=== PATIENT | female | born 1945 | race Caucasian/White ===

== ENCOUNTER 2017-09-30 16:48 | Emergency (ER) | payer MEDICARE, MEDICAID ==
--- NOTE | 2017-09-30 17:21 | RAD ---
THREE VIEWS OF THE RIGHT SHOULDER: 09/30/17 INDICATION: Right arm pain. COMPARISON: None. FINDINGS: There is a focus of calcific tendinosis overlying the posterior aspect of the right greater tuberosit y. There is mild AC joint osteoarthrosis. No acute fracture or subluxation is evident. Visualized rig ht lung is clear. IMPRESSION: Calcific tendinosis posterior right greater tuberosity. POS: TERE
== END 2017-09-30 17:28 | disposition home or self-care (01) ==
LOC: ERS 16:48
DX: M65.811 Other synovitis and tenosynovitis, right shoulder (principal); E11.9 Type 2 diabetes mellitus without complications; E78.5 Hyperlipidemia, unspecified; I12.9 Hypertensive chronic kidney disease with stage 1 through stage 4 chronic kidney disease, or unspecified chronic kidney disease; N18.2 Chronic kidney disease, stage 2 (mild)

== ENCOUNTER 2017-11-05 13:46 | Emergency (ER) | payer MEDICARE, MEDICAID | END 2017-11-05 16:22 | disposition home or self-care (01) | LOC: ERS 13:46 | DX: H92.01 Otalgia, right ear (principal); E11.22 Type 2 diabetes mellitus with diabetic chronic kidney disease; I12.9 Hypertensive chronic kidney disease with stage 1 through stage 4 chronic kidney disease, or unspecified chronic kidney disease; E78.5 Hyperlipidemia, unspecified; F41.9 Anxiety disorder, unspecified; N18.2 Chronic kidney disease, stage 2 (mild); Z79.4 Long term (current) use of insulin; Z79.899 Other long term (current) drug therapy | CPT/HCPCS: 99282 ==

== ENCOUNTER 2019-04-12 10:29 | Emergency (ER) | payer MEDICARE, OTHER ==
[2019-04-12 11:04] LABS: #Eosinphils 0.1 thou/uL (0.0-0.7); #Lymphocytes 1.4 thou/uL (1.20-3.40); #Monocytes 0.5 thou/uL (0.11-0.59); #Neutrophils 4.7 thou/uL (1.40-6.50); %Basophils 0.5 % (0.0-1.0); %Eosinophils 1.9 % (0.0-10.0); %Lymphocytes 20.8 % (21.0-51.0); %Monocytes 7.5 % (0.0-10.0); %Neutrophils 69.4 % (42.0-75.0); Hemoglobin 9.3 g/dL (12.0-16.0); Mean Corpuscular HGB CONC 32.7 g/dL (32.0-36.0); Mean Corpuscular Hemoglobin 28.4 pg (27.0-31.0); Mean Corpuscular Volume 86.8 fL (78.0-98.0); Mean Platelet Volume 8.1 fL (7.4-10.4); Platelet Count 195 thou/uL (130-400); RBC Distribution Width 13.2 % (11.5-14.5); Red Blood Cell (RBC) Count 3.28 mill/uL (4.20-5.40); White Blood Cell (WBC) Count 6.8 thou/uL (4.8-10.8)
--- NOTE | 2019-04-12 11:14 | RAD ---
RADIOGRAPH CHEST 1 VIEW: DATE: 04/12/2019 HISTORY: 73-year-old female with fatigue and near syncope FINDINGS: There is cardiomegaly. The thoracic aorta is tortuous and ectatic. There is no evidence of airspace d ensity, pulmonary edema, or pneumothorax. The lateral costophrenic angles are not effaced. Mild pulmonary venous congestion. Sternotomy wires. IMPRESSION: 1) No acute pulmonary findings. 2) cardiomegaly without overt congestive heart failure. 3) ectasia of thoracic aorta.
[2019-04-12 11:24] LABS: ALT (SGPT) 11 U/L (8-55); AST (SGOT) 15 U/L (5-34); Albumin 4.1 g/dL (3.4-4.8); Alkaline Phosphatase 85 U/L (40-110); Anion Gap 11 mmol/L (10-20); BUN (Urea Nitrogen) 29 mg/dL (9.8-20.1); Bilirubin, Total 0.3 mg/dL (0.2-1.2); Calc. Creatinine Clearance 0 mL/min (70-130); Calcium 9.3 mg/dL (7.8-10.44); Carbon Dioxide 23 mmol/L (23-31); Chloride 106 mmol/L (98-107); Estimated GFR-MDRD 36; Globulin 2.6 g/dL (2.4-3.5); Glucose 222 mg/dL (83-110); Potassium 4.3 mmol/L (3.5-5.1); Protein, Total 6.7 g/dL (6.0-8.3); Sodium 136 mmol/L (136-145)
[2019-04-12 12:35] LABS: Bacteria/HPF None Seen HPF (None Seen); Bilirubin Negative (Negative); Blood, Urine Negative (Negative); Clarity Clear (Clear); Glucose, Urine (Dipstick) 50 mg/dL (Negative); Leukocyte Negative Leu/uL (Negative); Nitrite Negative (Negative); Protein, Urine (Dipstick) 50 mg/dL (Neg-Trace); RBC/HPF 0-3 HPF (0-3); Squamous Epithelial 0-3 HPF (0-3); Urobilinogen Normal mg/dL (Less than 2); WBC/HPF 0-3 HPF (0-3)
== END 2019-04-12 14:34 | disposition home or self-care (01) ==
LOC: ERS 10:29
DX: H81.399 Other peripheral vertigo, unspecified ear (principal); I20.9 Angina pectoris, unspecified; I12.9 Hypertensive chronic kidney disease with stage 1 through stage 4 chronic kidney disease, or unspecified chronic kidney disease; N18.2 Chronic kidney disease, stage 2 (mild); F41.9 Anxiety disorder, unspecified; Z79.891 Long term (current) use of opiate analgesic; Z79.899 Other long term (current) drug therapy
CPT/HCPCS: 36415; 71045; 80053; 81003; 81015; 83880; 84484; 85025; 93005; 96360; 96361

== ENCOUNTER 2019-10-31 17:05 | Emergency (ER) | payer MEDICARE, MEDICAID ==
[2019-10-31 17:38] LABS: #Eosinphils 0.1 thou/uL (0.0-0.7); #Lymphocytes 1.3 thou/uL (1.20-3.40); #Monocytes 0.5 thou/uL (0.11-0.59); #Neutrophils 4.3 thou/uL (1.40-6.50); %Basophils 0.7 % (0.0-1.0); %Eosinophils 1.1 % (0.0-10.0); %Lymphocytes 20.2 % (21.0-51.0); %Monocytes 7.9 % (0.0-10.0); %Neutrophils 70.1 % (42.0-75.0); Hemoglobin 9.5 g/dL (12.0-16.0); Mean Corpuscular Hemoglobin 27.8 pg (27.0-31.0); Mean Corpuscular Volume 84.4 fL (78.0-98.0); Mean Platelet Volume 7.8 fL (7.4-10.4); Platelet Count 184 thou/uL (130-400); RBC Distribution Width 13.8 % (11.5-14.5); Red Blood Cell (RBC) Count 3.41 mill/uL (4.20-5.40); White Blood Cell (WBC) Count 6.2 thou/uL (4.8-10.8)
[2019-10-31 17:59] LABS: ALT (SGPT) Less than 7 U/L (8-55); AST (SGOT) 12 U/L (5-34); Albumin 4.1 g/dL (3.4-4.8); Alkaline Phosphatase 72 U/L (40-110); Anion Gap 11 mmol/L (10-20); BUN (Urea Nitrogen) 30 mg/dL (9.8-20.1); Bilirubin, Total 0.4 mg/dL (0.2-1.2); CK (CPK) 54 U/L (29-168); Calc. Creatinine Clearance 0 mL/min (70-130); Calcium 9.4 mg/dL (7.8-10.44); Carbon Dioxide 24 mmol/L (23-31); Chloride 103 mmol/L (98-107); Estimated GFR-MDRD 28; Globulin 3.1 g/dL (2.4-3.5); Glucose 155 mg/dL (83-110); Lipase 37 U/L (8-78); Protein, Total 7.2 g/dL (6.0-8.3); Sodium 134 mmol/L (136-145)
[2019-10-31] MEDS ORDERED: Morphine 4 MG/ML VIAL ONE (20:16)
[2019-10-31] MEDS ORDERED: Ondansetron PF 4 MG/2 ML Vial ONE (20:16)
--- NOTE | 2019-10-31 22:17 | CT ---
CT OF THE ABDOMEN AND PELVIS WITHOUT CONTRAST: 11/10/09 COMPARISON: 06/04/16. HISTORY: Diarrhea and left lower quadrant abdominal pain. TECHNIQUE: Multiple contiguous axial images were obtained in a CT of the abdomen and pelvis without contrast. Sa gittal and coronal reformats were performed. FINDINGS: The patient is status post cholecystectomy and hysterectomy. The kidneys are slightly lobulated in ap pearance. There is a nonobstructive calcification in the right kidney measuring 1 to 2 mm in size. No focal liver lesions are seen. The adrenal glands, spleen, and pancreas are unremarkable, although ev aluation is limited without IV contrast. No free air, free fluid, or stranding changes are seen in the abdomen or pelvis. The large and small bowel are unremarkable. The appendix is normal. No abdominal or pelvic lymphadenopathy are seen. Degenerative changes are seen in the spine. The visualized inferior thorax and abdominal wall soft ti ssues are unremarkable. IMPRESSION: 1. No evidence of acute intra-abdominal/pelvic abnormality. 2. Nonobstructing right renal calcification. POS: EAA
== END 2019-10-31 21:23 | disposition home or self-care (01) ==
LOC: ERS 17:05
DX: R10.32 Left lower quadrant pain (principal); I20.9 Angina pectoris, unspecified; F41.9 Anxiety disorder, unspecified; I12.9 Hypertensive chronic kidney disease with stage 1 through stage 4 chronic kidney disease, or unspecified chronic kidney disease; N18.2 Chronic kidney disease, stage 2 (mild); Z79.891 Long term (current) use of opiate analgesic; Z79.899 Other long term (current) drug therapy
CPT/HCPCS: 36415; 74176; 80053; 82550; 83605; 83690; 85025; 96361; 96374; 96375; J2270; J2405

== ENCOUNTER 2020-01-10 13:16 | Emergency (ER) | payer MEDICARE, MEDICAID ==
--- NOTE | 2020-01-10 13:56 | RAD ---
RADIOGRAPH CHEST 1 VIEW: DATE: 01/10/2020 HISTORY: 74-year-old female with history of congestive heart failure presents with lower extremity edema. FINDINGS: There is cardiomegaly. The thoracic aorta is tortuous and ectatic. There is no evidence of airspace d ensity, pulmonary edema, or pneumothorax. The lateral costophrenic angles are not effaced. Sternotomy wires. IMPRESSION: 1) No acute pulmonary findings. 2) cardiomegaly without pulmonary edema. 3) ectasia of thoracic aorta. 4) status post open heart surgery.
[2020-01-10 14:14] LABS: #Eosinphils 0.1 thou/uL (0.0-0.7); #Lymphocytes 1.8 thou/uL (1.20-3.40); #Monocytes 0.6 thou/uL (0.11-0.59); #Neutrophils 4.6 thou/uL (1.40-6.50); %Basophils 0.5 % (0.0-1.0); %Eosinophils 1.7 % (0.0-10.0); %Lymphocytes 25.1 % (21.0-51.0); %Monocytes 8.3 % (0.0-10.0); %Neutrophils 64.3 % (42.0-75.0); Hemoglobin 9.3 g/dL (12.0-16.0); Mean Corpuscular HGB CONC 32.2 g/dL (32.0-36.0); Mean Corpuscular Hemoglobin 27.5 pg (27.0-31.0); Mean Corpuscular Volume 85.4 fL (78.0-98.0); Mean Platelet Volume 8.2 fL (7.4-10.4); Platelet Count 202 thou/uL (130-400); RBC Distribution Width 14.7 % (11.5-14.5); Red Blood Cell (RBC) Count 3.39 mill/uL (4.20-5.40); White Blood Cell (WBC) Count 7.1 thou/uL (4.8-10.8)
[2020-01-10 14:37] LABS: ALT (SGPT) 9 U/L (8-55); AST (SGOT) 16 U/L (5-34); Albumin 4.2 g/dL (3.4-4.8); Alkaline Phosphatase 72 U/L (40-110); Anion Gap 14 mmol/L (10-20); BUN (Urea Nitrogen) 30 mg/dL (9.8-20.1); Bilirubin, Total 0.3 mg/dL (0.2-1.2); Calc. Creatinine Clearance 0 mL/min (70-130); Calcium 9.4 mg/dL (7.8-10.44); Carbon Dioxide 21 mmol/L (23-31); Chloride 107 mmol/L (98-107); Estimated GFR-MDRD 40; Globulin 2.9 g/dL (2.4-3.5); Glucose 112 mg/dL (83-110); Potassium 4.3 mmol/L (3.5-5.1); Protein, Total 7.1 g/dL (6.0-8.3); Sodium 138 mmol/L (136-145)
[2020-01-10] MEDS ORDERED: Furosemide 40 MG TAB ONE (16:07)
--- NOTE | 2020-01-18 15:34 | EKG ---
Test Reason : Blood Pressure : / mmHG Vent. Rate : 064 BPM Atrial Rate : 064 BPM P-R Int : 184 ms QRS Dur : 084 ms QT Int : 410 ms P-R-T Axes : 018 -20 110 degrees QTc Int : 422 ms Normal sinus rhythm Voltage criteria for left ventricular hypertrophy Nonspecific ST and T wave abnormality Abnormal ECG Similar to 04/12/2019 Confirmed by CHETNA DENSON DO ([id number]), editor house organ SHERYL ZAVALA ([id number]) on 01/18/2020 3:34:06 PM Referred By: Confirmed By:CHETNA DENSON DO
== END 2020-01-10 16:12 | disposition home or self-care (01) ==
LOC: ERS 13:16
DX: R60.0 Localized edema (principal); I20.9 Angina pectoris, unspecified; I12.9 Hypertensive chronic kidney disease with stage 1 through stage 4 chronic kidney disease, or unspecified chronic kidney disease; N18.2 Chronic kidney disease, stage 2 (mild); F41.9 Anxiety disorder, unspecified; Z79.899 Other long term (current) drug therapy
CPT/HCPCS: 36415; 71045; 80053; 83880; 84484; 85025; 93005

== ENCOUNTER 2020-01-23 06:19 | Inpatient (IN) | payer MEDICARE, MEDICAID, OTHER ==
[2020-01-23] MEDS ORDERED: Fentanyl 100 MCG/2 ML VIAL ONE (06:39)
[2020-01-23] MEDS ORDERED: Ondansetron PF 4 MG/2 ML Vial ONE ×2 (06:39→08:27)
[2020-01-23 06:45] LABS: #Basophils 0.1 thou/uL (0.0-0.2); #Eosinphils 0.2 thou/uL (0.0-0.7); #Lymphocytes 2.4 thou/uL (1.20-3.40); #Monocytes 0.8 thou/uL (0.11-0.59); #Neutrophils 7.7 thou/uL (1.40-6.50); %Basophils 0.7 % (0.0-1.0); %Eosinophils 1.4 % (0.0-10.0); %Lymphocytes 21.6 % (21.0-51.0); %Monocytes 7.4 % (0.0-10.0); %Neutrophils 68.9 % (42.0-75.0); Hemoglobin 11.7 g/dL (12.0-16.0); Mean Corpuscular HGB CONC 32.6 g/dL (32.0-36.0); Mean Platelet Volume 7.4 fL (7.4-10.4); Platelet Count 268 thou/uL (130-400); RBC Distribution Width 14.8 % (11.5-14.5); Red Blood Cell (RBC) Count 4.18 mill/uL (4.20-5.40); White Blood Cell (WBC) Count 11.2 thou/uL (4.8-10.8)
[2020-01-23 07:09] LABS: ALT (SGPT) 8 U/L (8-55); AST (SGOT) 11 U/L (5-34); Albumin 4.2 g/dL (3.4-4.8); Alkaline Phosphatase 74 U/L (40-110); Anion Gap 12 mmol/L (10-20); BUN (Urea Nitrogen) 27 mg/dL (9.8-20.1); Bilirubin, Total 0.5 mg/dL (0.2-1.2); Calc. Creatinine Clearance 0 mL/min (70-130); Calcium 9.6 mg/dL (7.8-10.44); Carbon Dioxide 31 mmol/L (23-31); Chloride 96 mmol/L (98-107); Estimated GFR-MDRD 46; Glucose 151 mg/dL (83-110); Lipase 602 U/L (8-78); Potassium 3.7 mmol/L (3.5-5.1); Protein, Total 7.2 g/dL (6.0-8.3); Sodium 135 mmol/L (136-145)
[2020-01-23 07:45] LABS: Bilirubin Negative (Negative); Blood, Urine Negative (Negative); Clarity Clear (Clear); Glucose, Urine (Dipstick) Normal (Negative); Ketone, Urine Negative (Negative); Leukocyte Negative Leu/uL (Negative); Nitrite Negative (Negative); Protein, Urine (Dipstick) 100 mg/dL (Neg-Trace); Urobilinogen Normal mg/dL (Less than 2); pH, Urine 7.5 (5.0-9.0)
[2020-01-23 07:46] LABS: Bacteria/HPF None Seen HPF (None Seen); RBC/HPF 0-3 HPF (0-3); Squamous Epithelial None Seen HPF (0-3); WBC/HPF 0-3 HPF (0-3)
--- NOTE | 2020-01-23 07:51 | CT ---
CT ABDOMEN WITH CONTRAST CT PELVIS WITH CONTRAST: DATE: 01/23/2020 HISTORY: 74-year-old female with epigastric abdominal pain radiating to back, with nausea TECHNIQUE: IV injection of iodinated contrast media: Administered Oral contrast media:Not administered FINDINGS: Liver: No focal solid mass. Spleen: No splenomegaly.. Pancreas: No mass or surrounding fat stranding.. Adrenals: No mass.. Kidneys: No hydronephrosis or enhancement abnormalities.. Punctate 2 mm calculus at right upper pole. At least 2 small, approximately 1 cm hypodensities in the right renal lower pole parenchyma, too small to characterize. No pyelonephritis. Ureters: No dilation. Bladder: No pathology identified. Abdominal aorta: No aneurysm. Small bowel: No dilation. Colon: No adjacent fat stranding. Appendix: No dilation or adjacent fat stranding.. Free air: None. Free fluid: None. IMPRESSION: 1. No acute pathology identified.. 2. Minimal nephrolithiasis: Single punctate right renal calculus. 3. Nonspecific small lesions in lower pole of right kidney, too small to characterize.
[2020-01-23] MEDS ORDERED: Morphine 4 MG/ML VIAL ONE (08:27)
--- NOTE | 2020-01-23 08:48 | PDOC.FPRHP ---
- History of Present Illness Chief Complaint: Abdominal pain History of Present Illness: Patient is a 74F presenting to ED for abdominal pain. PMHx is significant for CAD s/p CABG, HTN, HLD. Patient reports that she started having abdominal pain last night. SHe describes the pain as stabbing epigastric pain that radiated around her sides to her back. She endorses minimal nausea with no vomiting. She has not had solid PO intake. She reports that she is able to drink water but not able to eat food. She had cholecystectomy ~30 yrs ago. She has never had pancreatitis before. ED Course: Received 1L NS, 4 mg Morphine, 100 mcg fentanyl, 4 mg Zofran X2. - Allergies/Adverse Reactions Allergies Allergy/AdvReac Type Severity Reaction Status Date / Time codeine [Codeine] Allergy Unknown Emesis Verified 02/12/16 14:50 - Home Medications Medication Instructions Recorded Confirmed Type Sertraline HCl [Zoloft] 50 mg PO HS 10/30/15 01/23/20 History Carvedilol [Coreg] 6.25 mg PO BID-WM #0 tab 11/01/15 01/23/20 Rx Ferrous Sulfate [Feosol] 325 mg PO BID 01/23/20 01/23/20 History Furosemide 20 mg PO DAILY 01/23/20 01/23/20 History Isosorbide Mononitrate [Imdur ER] 30 mg PO DAILY 01/23/20 01/23/20 History NIFEdipine [Procardia XL] 30 mg PO BID 01/23/20 01/23/20 History Omeprazole 20 mg PO DAILY 01/23/20 01/23/20 History hydrALAZINE [Apresoline] 50 mg PO BID 01/23/20 01/23/20 History - History PMHx: CAD s/p CABG, HTN, HLD, DM PSHx: Cholecystectomy, CABG, Hysterectomy FHx: Dad with HTN Social: Denies X3 - Review of Systems General: denies: fever/chills, weight/appetite/sleep changes Eyes: denies: eye pain, vision changes ENT: denies: nasal congestion, rhinorrhea Respiratory: denies: cough, shortness of breath Cardiovascular: denies: chest pain, edema Gastrointestinal: reports: nausea, abdominal pain. denies: vomiting, diarrhea, constipation Genitourinary: denies: incontinence, dysuria Skin: denies: rashes, lesions Musculoskeletal: denies: pain, tenderness Neurological: denies: numbness, weakness - Vital signs BP: 199/76, Pulse: 59, Resp: 18, Temp: 98.4 (Oral), Pain: 10, O2 sat: 100 on ( Room Air), Time: 01/23/2020 06:20. 68 kg - Physical Exam Constitutional: NAD, awake, alert and oriented, well developed HEENT: normocephalic and atraumatic, EOMI, conjunctiva clear Neck: supple, FROM Heart: RRR, normal S1/S2, no murmurs/rubs/gallops, pulses present Lungs: CTAB, no respiratory distress, good air movement, no rales/rhonchi Abdomen: soft, bowel sounds present, no masses/distention, no hernias -Abdomen: Significant abdominal pain with tenderness to palpation in epigastric area Musculoskeletal: normal structure, normal tone Neurological: no focal deficit, CN II-XII intact Skin: no rash/lesions, capillary refill <2 seconds Heme/Lymphatic: no unusual bruising or bleeding, no purpura Psychiatric: normal mood and affect, good judgment and insight FMR H&P: Results - Labs Result Diagrams: 01/23/20 06:33 01/23/20 06:33 Lab results: WBC 11.2 thou/uL (4.8-10.8) H 01/23/20 06:33 Hgb 11.7 g/dL (12.0-16.0) L 01/23/20 06:33 Hct 36.0 % (36.0-47.0) 01/23/20 06:33 MCV 86.0 fL (78.0-98.0) 01/23/20 06:33 Plt Count 268 thou/uL (130-400) 01/23/20 06:33 Neutrophils % 68.9 % (42.0-75.0) 01/23/20 06:33 Sodium 135 mmol/L (136-145) L 01/23/20 06:33 Potassium 3.7 mmol/L (3.5-5.1) 01/23/20 06:33 Chloride 96 mmol/L (98-107) L 01/23/20 06:33 Carbon Dioxide 31 mmol/L (23-31) 01/23/20 06:33 BUN 27 mg/dL (9.8-20.1) H 01/23/20 06:33 Creatinine 1.15 mg/dL (0.6-1.1) H 01/23/20 06:33 Glucose 151 mg/dL (83-110) H 01/23/20 06:33 Calcium 9.6 mg/dL (7.8-10.44) 01/23/20 06:33 Total Bilirubin 0.5 mg/dL (0.2-1.2) 01/23/20 06:33 AST 11 U/L (5-34) 01/23/20 06:33 ALT 8 U/L (8-55) 01/23/20 06:33 Alkaline Phosphatase 74 U/L (40-110) 01/23/20 06:33 Serum Total Protein 7.2 g/dL (6.0-8.3) 01/23/20 06:33 Albumin 4.2 g/dL (3.4-4.8) 01/23/20 06:33 Lipase 602 U/L (8-78) H 01/23/20 06:33 Urine Ketones Negative mg/dL (Negative) 01/23/20 07:30 Urine Blood Negative (Negative) 01/23/20 07:30 Urine Nitrite Negative (Negative) 01/23/20 07:30 Ur Leukocyte Esterase Negative Lorie/uL (Negative) 01/23/20 07:30 Urine RBC 0-3 HPF (0-3) 01/23/20 07:30 Urine WBC 0-3 HPF (0-3) 01/23/20 07:30 Ur Squamous Epith Cells None Seen HPF (0-3) 01/23/20 07:30 Urine Bacteria None Seen HPF (None Seen) 01/23/20 07:30 - EKG Interpretation EKG: Normal sinus rhythm, no acute signs of infarct - Radiology Interpretation CT scan - abdomen Status: report reviewed by me Additional comment: Renal calculi, no concern for pancreatitis FMR H&P: A/P - Plan Acute pancreatitis - No history of pancreatitis, denies etoh use - Lipase 602, CT no evidence of pancreatitis-US ordered, radiologist reported that CT abdomen had sufficient view of Common bile duct and US would not add any more significant information - Admit to medical floor, inpatient - NPO, IVF - Pain control - lipid panel HTN - SBP 170-200 in ED - Hold Home medications- nifedipine - continue to monitor - hold home lasix - PRN hydralazine, labetalol CAD s/p CABG - hold home med IMDUR, Coreg, hydralazine - PRN SL nitro GERD - IV Protonix - Hold home PPI Anxiety/depression - Hold home sertraline 50 mg DVT: lovenox GI: protonix Code: full PCP: BRITTANY Dispo: Admit to medicine, Expected LOS >48 hrs FMR H&P: Upper Level - Plan Date/Time: 01/23/20 0848 Winsome Ramirez DO, have evaluated this patient and agree with findings/plan as outlined by internet webmaster resident. Pertinent changes/additions are listed here. Pt is a 69 yo M/F with PMH of CAD s/p CABG, HTN, HLD, and T2DM presents to the ED for epigastric pain onset yesterday associated with N/V. She denies fever. She reports a new medication recently. Has hx of cholecystectomy and denies epigastric colic. Denies alcohol use. VS: BP 199/70, O2 97%, P50, T98.1 PE: Gen: NAD HEENT: Moist MM, no LAD Heart: RRR, no murmurs or extra sounds. Lungs: CTAB, no wheezing. No increased work of breathing Abd: soft,ttp of epigastric area, no rebound or guarding, no masses or hernias Ext: no cyanosis or edema Skin: no rashes Psych: AOx3 Pertinent Labs/Imaging: CTabd: neg, normal CBD caliber Lipase: 600 BUN 27, Cr 1.15 WBC 11.2 A/P: Acute Pancreatitis: -unsure etiology, reviewing medications which is most likely with time line. S/ p cholecystectomy with CTabd showing normal caliber CBD. FLP pending. Pt denies etoh abuse -s/p 1L IVF in ED, will continue maintenance, repeat BMP this afternoon, NPO status -CTabd neg, but epigastric pain and Lipase 600 -BISAP: 2 CKD3: -renally dose meds -BUN elevated, repeat later this afternoon T2DM: -SSI, ACHS accuchecks CAD s/p CABG: -daily ASA once tolerating PO HTN: -elevated now, didn't take home meds -will give prns until tolerating PO Dispo: Stable, inaptient medical DVT PPx: Lovenox GI PPx: none Code Status: Full PCP: BRITTANY Addendum - Attending - Attending Attestation Date/Time: 01/23/20925 I personally evaluated the patient and discussed the management with Dr. Ying/ Donna. I agree with the History, Examination, Assessment and Plan documented above with any addition or exceptions noted below. Patient here with acute onset midepigastric pain associated with bloating, nausea, inability to tolerate PO. Reports history of similar pain. She is s/p cholecystectomy per patient. She has normal vital signs at this time. Labs show elevated baseline creatinine, BUN, and highly elevated lipase. Her CT scan is nonremarkable for abdominal pathology acute. Clinically, she has pancreatitis and will be treated as such with IVF, pain control, and attempts to identify the cause.
[2020-01-23] MEDS ORDERED: Acetaminophen 650 MG Suppository PR PRN (10:05)
[2020-01-23] MEDS ORDERED: Ondansetron ODT 4 MG TAB PO PRN (10:05)
[2020-01-23] MEDS ORDERED: Calcium Carbonate 500 MG ChewTAB PO PRN (10:05)
[2020-01-23] MEDS ORDERED: Acetaminophen 325 MG TAB PO PRN (10:05)
[2020-01-23] MEDS ORDERED: Ondansetron PF 4 MG/2 ML Vial IVP PRN (10:05)
[2020-01-23] MEDS: Lactated Ringer's 1,000 ML IV SCH ×2 (10:15→17:04)
[2020-01-23] MEDS ORDERED: Morphine 2 MG/ML VIAL SLOW IVP PRN (10:15)
[2020-01-23 10:32] VITALS: BMI 26.8
[2020-01-23] MEDS ORDERED: hydrALAZINE 20 MG/ML VIAL SLOW IVP SCH (12:00)
[2020-01-23] MEDS ORDERED: Nitroglycerin 0.4 MG TAB (25 Tab Bottle) SL PRN (12:04)
[2020-01-23] MEDS ORDERED: Labetalol HCl 100 MG/20 ML VIAL SLOW IVP PRN (12:04)
[2020-01-23] MEDS: hydrALAZINE 20 MG/ML VIAL SLOW IVP PRN ×3 (12:33→20:15)
[2020-01-23] MEDS ORDERED: Pantoprazole 40 MG VIAL IVP SCH (12:45)
[2020-01-23] MEDS ORDERED: Iopamidol 370 76% 100 ML VIAL ONE (13:19)
[2020-01-23 13:59] LABS: Anion Gap 12 mmol/L (10-20); BUN (Urea Nitrogen) 22 mg/dL (9.8-20.1); Calc. Creatinine Clearance 52 mL/min (70-130); Calcium 9.2 mg/dL (7.8-10.44); Carbon Dioxide 30 mmol/L (23-31); Chloride 99 mmol/L (98-107); Estimated GFR-MDRD 56; Glucose 129 mg/dL (83-110); Potassium 3.9 mmol/L (3.5-5.1); Sodium 137 mmol/L (136-145)
[2020-01-23 14:20] LABS: Cardiac Risk 2.5 (Less than 4.5)
--- NOTE | 2020-01-23 16:15 | PDOC.BPN ---
- Brief Progress Note Ms. Kinsey is a 74 yo patient of mine admitted earlier this morning for acute pancreatitis. I stopped by to visit with her as a courtesy visit. Pt reports that the pain occurred suddenly last night and progressively worsened bringing her to the ED. She denies any history of pancreatitis and denies alcohol use. She reports that she is feeling much better this afternoon and is resting comfortably in bed.
[2020-01-23] MEDS ORDERED: Carvedilol 6.25 MG TAB PO SCH (17:00)
[2020-01-23 17:09] LABS: SARS-CoV-2 MS2 Positive; SARS-CoV-2 N Gene Negative; SARS-CoV-2 S Gene Negative; SARS-CoV-2 by NAA Not Detected (NotDetected); SARS-CoV-2 orf1ab Negative
[2020-01-23] MEDS ORDERED: NIFEdipine XL 30 MG TAB PO SCH (21:00)
[2020-01-23] MEDS ORDERED: hydrALAZINE 25 MG TAB PO SCH (21:00)
[2020-01-23] MEDS ORDERED: Ferrous Sulfate 325 MG TAB PO SCH (21:00)
[2020-01-24] MEDS: hydrALAZINE 20 MG/ML VIAL SLOW IVP PRN ×4 (00:49→16:11)
[2020-01-24] MEDS: Lactated Ringer's 1,000 ML IV SCH ×3 (00:52→18:00)
[2020-01-24 05:37] LABS: #Eosinphils 0.2 thou/uL (0.0-0.7); #Lymphocytes 1.7 thou/uL (1.20-3.40); #Monocytes 0.7 thou/uL (0.11-0.59); #Neutrophils 8.5 thou/uL (1.40-6.50); %Basophils 0.3 % (0.0-1.0); %Eosinophils 1.5 % (0.0-10.0); %Lymphocytes 15.5 % (21.0-51.0); %Monocytes 6.2 % (0.0-10.0); %Neutrophils 76.5 % (42.0-75.0); Hemoglobin 10.4 g/dL (12.0-16.0); Mean Corpuscular HGB CONC 31.9 g/dL (32.0-36.0); Mean Corpuscular Hemoglobin 27.9 pg (27.0-31.0); Mean Corpuscular Volume 87.4 fL (78.0-98.0); Mean Platelet Volume 7.7 fL (7.4-10.4); Platelet Count 224 thou/uL (130-400); RBC Distribution Width 15.1 % (11.5-14.5); Red Blood Cell (RBC) Count 3.71 mill/uL (4.20-5.40); White Blood Cell (WBC) Count 11.1 thou/uL (4.8-10.8)
[2020-01-24 06:00] LABS: Anion Gap 11 mmol/L (10-20); BUN (Urea Nitrogen) 23 mg/dL (9.8-20.1); Calc. Creatinine Clearance 48 mL/min (70-130); Calcium 8.8 mg/dL (7.8-10.44); Carbon Dioxide 30 mmol/L (23-31); Chloride 98 mmol/L (98-107); Estimated GFR-MDRD 52; Glucose 132 mg/dL (83-110); Potassium 3.9 mmol/L (3.5-5.1); Sodium 135 mmol/L (136-145)
--- NOTE | 2020-01-24 06:47 | PDOC.FM ---
- Subjective Subjective: Patient reports that she is feeling better this morning with only abdominal soreness when she presses on it. She does not feel hungry but would like to try taking oral nutrition. - Objective MAR Reviewed: Yes Vital Signs & Weight: Vital Signs (12 hours) Temp Pulse Resp BP BP Pulse Ox 01/24/20 06:28 179/64 H 01/24/20 05:12 64 183/64 H 01/24/20 04:22 98.5 F 60 16 175/68 H 98 01/24/20 01:57 59 L 160/64 H 01/24/20 00:49 59 L 166/65 H 01/24/20 00:04 98.5 F 62 16 174/60 H 97 01/23/20 21:25 147/62 H 01/23/20 21:21 147/62 H 01/23/20 20:15 63 01/23/20 20:00 98 01/23/20 19:41 185/66 H 01/23/20 19:17 98.8 F 63 16 189/73 H 98 Weight Weight 66.587 kg I&O: 01/22/20 01/23/20 01/24/20 06:59 06:59 06:59 Intake Total 2500 Balance 2500 Result Diagrams: 01/24/20 05:11 01/24/20 05:11 Phys Exam - Physical Examination Constitutional: NAD HEENT: moist MMs, sclera anicteric Respiratory: no wheezing, no rales, no rhonchi, clear to auscultation bilateral Cardiovascular: RRR, no significant murmur, no rub Gastrointestinal: soft, non-tender, no distention, positive bowel sounds Musculoskeletal: no edema, pulses present Dx/Plan - Plan Plan: Acute pancreatitis - No history of pancreatitis, denies etoh use - Lipase 602, CT no evidence of pancreatitis-US ordered, radiologist reported that CT abdomen had sufficient view of Common bile duct and US would not add any more significant information - Admit to medical floor, inpatient - Increase diet to CLD, IVF - Pain control HTN - SBP 170-200 in ED - Hold Home medications- nifedipine - continue to monitor - hold home lasix - PRN hydralazine, labetalol CAD s/p CABG - hold home med IMDUR, Coreg, hydralazine - PRN SL nitro GERD - IV Protonix - Hold home PPI Anxiety/depression - Hold home sertraline 50 mg Anemia - Iron studies DVT: lovenox GI: protonix Code: full PCP: BRITTANY Dispo: Admit to medicine, Expected LOS >48 hrs Addendum - Attending - Attending Attestation Date/Time: 01/24/20 1114 I personally evaluated the patient and discussed the management with Dr. Ying. I agree with the History, Examination, Assessment and Plan documented above with any addition or exceptions noted below. Patient with improved pain. No narcotics overnight. Will advance to CLD. Continue IVF.
[2020-01-24] MEDS: Enoxaparin Sodium 40 MG/0.4 ML SYRINGE SC SCH (08:31)
[2020-01-24] MEDS ORDERED: Pantoprazole 40 MG VIAL IVP SCH (09:00)
[2020-01-24] MEDS ORDERED: Carvedilol 6.25 MG TAB PO SCH (12:00)
[2020-01-24] MEDS ORDERED: hydrALAZINE 25 MG TAB PO SCH (12:00)
[2020-01-24] MEDS ORDERED: NIFEdipine XL 30 MG TAB PO SCH (12:00)
[2020-01-24] MEDS: Ferrous Sulfate 325 MG TAB PO SCH (16:10)
[2020-01-24] MEDS: Carvedilol 6.25 MG TAB PO SCH (16:10)
[2020-01-24] MEDS: hydrALAZINE 25 MG TAB PO SCH (19:51)
[2020-01-24] MEDS: NIFEdipine XL 30 MG TAB PO SCH (19:51)
[2020-01-25] MEDS: Lactated Ringer's 1,000 ML IV SCH ×2 (02:10→10:35)
[2020-01-25 05:49] LABS: #Eosinphils 0.2 thou/uL (0.0-0.7); #Lymphocytes 1.4 thou/uL (1.20-3.40); #Monocytes 0.6 thou/uL (0.11-0.59); %Basophils 0.4 % (0.0-1.0); %Eosinophils 2.1 % (0.0-10.0); %Lymphocytes 17.4 % (21.0-51.0); %Monocytes 6.9 % (0.0-10.0); %Neutrophils 73.3 % (42.0-75.0); Mean Corpuscular HGB CONC 31.5 g/dL (32.0-36.0); Mean Corpuscular Hemoglobin 27.5 pg (27.0-31.0); Mean Corpuscular Volume 87.5 fL (78.0-98.0); Mean Platelet Volume 7.5 fL (7.4-10.4); Platelet Count 208 thou/uL (130-400); RBC Distribution Width 14.7 % (11.5-14.5); Red Blood Cell (RBC) Count 3.62 mill/uL (4.20-5.40); White Blood Cell (WBC) Count 8.2 thou/uL (4.8-10.8)
--- NOTE | 2020-01-25 05:57 | PDOC.FM ---
- Subjective Subjective: Patient doing well this am no acute concerns, reports that diet was tolerated well yesterday. Denies abdominal pain. - Objective MAR Reviewed: Yes Vital Signs & Weight: Vital Signs (12 hours) Temp Pulse Resp BP Pulse Ox 01/25/20 04:00 98.2 F 51 L 16 157/58 H 96 01/25/20 00:05 98.5 F 52 L 18 145/65 H 98 01/24/20 21:47 97 01/24/20 19:17 98.5 F 54 L 16 173/64 H 97 01/24/20 18:01 169/67 H Weight Weight 66.587 kg I&O: 01/23/20 01/24/20 01/25/20 06:59 06:59 06:59 Intake Total 2500 2100 Balance 2500 2100 Result Diagrams: 01/25/20 05:25 01/25/20 05:25 Phys Exam - Physical Examination Constitutional: NAD HEENT: moist MMs, sclera anicteric Respiratory: no wheezing, no rales, no rhonchi, clear to auscultation bilateral Cardiovascular: RRR, no significant murmur, no rub Gastrointestinal: soft, no distention, positive bowel sounds mild tenderness to palpation in epigastric region Musculoskeletal: no edema, pulses present Dx/Plan - Plan Plan: Acute pancreatitis - No history of pancreatitis, denies etoh use - Lipase 602, CT no evidence of pancreatitis-US ordered, radiologist reported that CT abdomen had sufficient view of Common bile duct and US would not add any more significant information - Admit to medical floor, inpatient - Increase diet to Full liquid - Pain control, has not used IV morphine for >36 hours HTN - SBP 170-200 in ED - Home medications- nifedipine - continue to monitor - consider restarting home lasix - PRN hydralazine, labetalol CAD s/p CABG - Home med IMDUR, Coreg, hydralazine - PRN SL nitro GERD - PO protonix Anxiety/depression - Home sertraline 50 mg Anemia - On home iron, previously worked up in clinic, likely Anemia of Chronic disease DVT: lovenox GI: protonix Code: full PCP: BRITTANY Dispo: Admitted to medical, Expected LOS <48 hrs Addendum - Attending - Attending Attestation Date/Time: 01/25/20 4316 I personally evaluated the patient and discussed the management with Dr. Ying. I agree with the History, Examination, Assessment and Plan documented above with any addition or exceptions noted below. Patient feeling improved and tolerated CLD yesterday well. Will escalate to full liquids this morning and ADAT. Possible dc later if she does well. No narcotics for pain control in >24 hours.
[2020-01-25 06:12] LABS: Anion Gap 12 mmol/L (10-20); BUN (Urea Nitrogen) 17 mg/dL (9.8-20.1); Calc. Creatinine Clearance 52 mL/min (70-130); Calcium 8.8 mg/dL (7.8-10.44); Carbon Dioxide 26 mmol/L (23-31); Chloride 104 mmol/L (98-107); Estimated GFR-MDRD 57; Glucose 132 mg/dL (83-110); Sodium 138 mmol/L (136-145)
[2020-01-25 07:05] VITALS: TEMP 98.3
[2020-01-25] MEDS: NIFEdipine XL 30 MG TAB PO SCH (08:15)
[2020-01-25] MEDS: Carvedilol 6.25 MG TAB PO SCH (08:15)
[2020-01-25] MEDS: Ferrous Sulfate 325 MG TAB PO SCH (08:15)
[2020-01-25] MEDS: hydrALAZINE 25 MG TAB PO SCH (08:16)
[2020-01-25] MEDS: Enoxaparin Sodium 40 MG/0.4 ML SYRINGE SC SCH (08:17)
[2020-01-25] MEDS ORDERED: NIFEdipine XL 60 MG TAB PO SCH (10:15)
[2020-01-25 17:15] VITALS: BP 143/66
[2020-01-26] MEDS ORDERED: NIFEdipine XL 90 MG TAB PO SCH (09:00)
--- NOTE | 2020-01-26 12:44 | DIS ---
DATE OF ADMISSION: 01/23/2020 DATE OF DISCHARGE: 01/25/2020 RESIDENT: Santosh Ying MD. ADMITTING ATTENDING: Golden Aparicio MD. DISCHARGE ATTENDING: Golden Aparicio MD. CONSULTS: None. PROCEDURES: CT of the abdomen and pelvis showing no acute signs of pancreatitis. PRIMARY DIAGNOSIS: Acute pancreatitis. SECONDARY DIAGNOSES: Hypertension; hyperlipidemia; coronary artery disease, status post coronary artery bypass graft; gastroesophageal reflux disease; anxiety/depression. DISCHARGE MEDICATIONS: 1. Carvedilol 6.25 mg p.o. b.i.d. 2. Ferrous sulfate 325 mg p.o. b.i.d. 3. Hydralazine 50 mg p.o. b.i.d. 4. Imdur 30 mg p.o. daily. 5. Nifedipine 90 mg p.o. daily. 6. Omeprazole 20 mg p.o. daily. 7. Zofran 4 mg p.o. q.6 hours p.r.n., 10 tabs. 8. Sertraline 50 mg p.o. at bedtime. DISCONTINUED MEDICATIONS: Nifedipine 30 mg b.i.d. HISTORY OF PRESENT ILLNESS/HOSPITAL COURSE: The patient is a 74-year-old female , who presented to the ER for abdominal pain. The patient reported that she started having abdominal pain the night prior to admission, described the pain as stabbing epigastric pain that radiated around her sides to her back. She endorsed minimal nausea with no vomiting. She had not had solid p.o. intake, but had been able to drink water. She had a cholecystectomy about 30 years ago. She has never had pancreatitis before. She denied alcohol use. Lipase was significant for level of 602 upon admission. Physical exam showed epigastric tenderness to palpation. The patient was admitted for pancreatitis. The patient was started on maintenance IV fluids and placed n.p.o. The next day, the patient was feeling better and started on a clear liquid diet. The patient was transitioned to full liquid diet and then bariatric soft diet. The patient reported no increased abdominal pain and no nausea and vomiting. The patient's blood pressure was elevated throughout her hospital stay. Systolic blood pressures were in the 200s upon admission and were poorly controlled during the hospital stay, however, did get down to the 150 systolic by the time of discharge. Changed patient's nifedipine from 30 mg b.i.d. to 90 mg daily. DISPOSITION: Stable. DISCHARGE INSTRUCTIONS: 1. Location: Home. 2. Diet: Low fat, heart healthy. 3. Activity: As tolerated. 4. Followup: Follow up with PCP within 2 weeks. Job ID: [id number] MTDD
== END 2020-01-25 15:00 | disposition home or self-care (01) | DRG 440 ==
LOC: ERS 06:19 → T4-B 10:02
PROVIDERS: ADMIT Student in an Organized Health Care Education/Training Program; ATTEND Student in an Organized Health Care Education/Training Program
DX: K85.90 Acute pancreatitis without necrosis or infection, unspecified (principal); Z20.828 Contact with and (suspected) exposure to other viral communicable diseases; E78.5 Hyperlipidemia, unspecified; I25.10 Atherosclerotic heart disease of native coronary artery without angina pectoris; K21.9 Gastro-esophageal reflux disease without esophagitis; F41.9 Anxiety disorder, unspecified; E11.22 Type 2 diabetes mellitus with diabetic chronic kidney disease; I12.9 Hypertensive chronic kidney disease with stage 1 through stage 4 chronic kidney disease, or unspecified chronic kidney disease; N18.3 Chronic kidney disease, stage 3 (moderate); F32.9 Major depressive disorder, single episode, unspecified; D63.1 Anemia in chronic kidney disease; Z95.1 Presence of aortocoronary bypass graft; Z88.5 Allergy status to narcotic agent; Z79.899 Other long term (current) drug therapy; Z90.710 Acquired absence of both cervix and uterus; Z90.49 Acquired absence of other specified parts of digestive tract; Z88.8 Allergy status to other drugs, medicaments and biological substances
CPT/HCPCS: 36415; 74177; 80048; 80053; 80061; 81003; 81015; 83690; 84484; 85025; 87635; 93005; 96361; 96374; 96375; 96376; C9113; J0360; J1650; J2270; J2405; J3010; Q9967; U0003

== ENCOUNTER 2020-04-06 19:05 | Observation (INO) | payer MEDICARE, MEDICAID ==
[2020-04-06] MEDS ORDERED: Nitroglycerin 2% Ointment 1 INCH/1 GM Packet ONE (19:32)
[2020-04-06] MEDS ORDERED: Aspirin Chewable 81 MG TAB ONE (19:32)
[2020-04-06 19:47] LABS: #Eosinphils 0.1 thou/uL (0.0-0.7); #Lymphocytes 1.9 thou/uL (1.20-3.40); #Monocytes 0.4 thou/uL (0.11-0.59); #Neutrophils 5.8 thou/uL (1.40-6.50); %Basophils 0.5 % (0.0-1.0); %Eosinophils 1.3 % (0.0-10.0); %Lymphocytes 22.6 % (21.0-51.0); %Monocytes 5.2 % (0.0-10.0); %Neutrophils 70.3 % (42.0-75.0); Hemoglobin 10.3 g/dL (12.0-16.0); Mean Corpuscular HGB CONC 33.8 g/dL (32.0-36.0); Mean Corpuscular Volume 85.7 fL (78.0-98.0); Mean Platelet Volume 7.5 fL (7.4-10.4); Platelet Count 222 thou/uL (130-400); RBC Distribution Width 14.1 % (11.5-14.5); Red Blood Cell (RBC) Count 3.55 mill/uL (4.20-5.40); White Blood Cell (WBC) Count 8.3 thou/uL (4.8-10.8)
--- NOTE | 2020-04-06 19:52 | RAD ---
RADIOGRAPH CHEST 1 VIEW: DATE: 04/06/2020 HISTORY: 74-year-old female with chest pain FINDINGS: The thoracic aorta is tortuous and ectatic. There is no evidence of airspace density, cardiomegaly, p ulmonary edema, or pneumothorax. The lateral costophrenic angles are not effaced. Sternotomy wires. IMPRESSION: 1) No acute pulmonary findings. 2) ectasia of thoracic aorta.
[2020-04-06 20:11] LABS: ALT (SGPT) 8 U/L (8-55); AST (SGOT) 15 U/L (5-34); Albumin 4.4 g/dL (3.4-4.8); Alkaline Phosphatase 94 U/L (40-110); Anion Gap 17 mmol/L (10-20); BUN (Urea Nitrogen) 32 mg/dL (9.8-20.1); Bilirubin, Total 0.2 mg/dL (0.2-1.2); Calc. Creatinine Clearance 0 mL/min (70-130); Carbon Dioxide 25 mmol/L (23-31); Chloride 99 mmol/L (98-107); Estimated GFR-MDRD 28; Globulin 3.5 g/dL (2.4-3.5); Glucose 125 mg/dL (83-110); Protein, Total 7.9 g/dL (6.0-8.3); Sodium 137 mmol/L (136-145)
[2020-04-06 20:18] LABS: CK (CPK) 52 U/L (29-168); Lipase 79 U/L (8-78)
--- NOTE | 2020-04-06 20:59 | PDOC.FPRHP ---
- History of Present Illness Chief Complaint: Chest Pain History of Present Illness: Pt is 74 y/o F who reported to ED today with c/o CP for the past day. She states that the pain was non-radiating and was a persistent deep pressure and this is the first time she had experienced pain like this. She mentioned that her BP has been high with her SBP in the 180s at home, however, her BP has tended to run high in this range. She denied SOB, headache, PND, SHETTY. ED Course: ASA, nitro - Allergies/Adverse Reactions Allergies Allergy/AdvReac Type Severity Reaction Status Date / Time codeine [Codeine] Allergy Unknown Emesis Verified 02/12/16 14:50 pravastatin Allergy Verified 04/06/20 23:04 - Home Medications Medication Instructions Recorded Confirmed Type Sertraline HCl [Zoloft] 50 mg PO HS 10/30/15 04/06/20 History Carvedilol [Coreg] 6.25 mg PO BID-WM #0 tab 11/01/15 04/06/20 Rx Ferrous Sulfate [Feosol] 325 mg PO BID 01/23/20 04/06/20 History Isosorbide Mononitrate [Imdur ER] 30 mg PO DAILY 01/23/20 04/06/20 History Omeprazole 20 mg PO DAILY 01/23/20 04/06/20 History hydrALAZINE [Apresoline] 50 mg PO BID 01/23/20 04/06/20 History Ondansetron [Zofran ODT] 4 mg PO Q6HR PRN #10 tab 01/25/20 04/06/20 Rx Aspirin [Ecotrin Regular Strength] 325 mg PO DAILY 30 Days #30 tab 04/07/20 Rx Furosemide [Lasix] 20 mg PO PRN PRN 04/07/20 04/07/20 History NIFEdipine [Nifedipine ER] 1 tab PO BID 04/07/20 04/07/20 History - History PMHx: CAD s/p CABG, HTN, HLD, DM PSHx: Cholecystectomy, CABG, Hysterectomy FHx: Dad with HTN Social: Denies X3 - Review of Systems General: denies: fever/chills, weight/appetite/sleep changes, fatigue Eyes: denies: eye pain Respiratory: denies: cough, congestion, shortness of breath Cardiovascular: reports: chest pain. denies: palpitation Gastrointestinal: denies: nausea, vomiting, diarrhea, constipation Genitourinary: denies: dysuria, polyuria Musculoskeletal: denies: pain, tenderness, stiffness - Vital signs BP: 150/68, Pulse: 53, Resp: 16, O2 sat: 99 on (Room Air), Time: 04/06/2020 20:00. - Physical Exam Constitutional: NAD, awake, alert and oriented, well developed HEENT: normocephalic and atraumatic, PERRLA Neck: supple Chest: no-tender to palpation Heart: RRR, normal S1/S2, no murmurs/rubs/gallops Lungs: CTAB, no respiratory distress, good air movement Abdomen: soft, non-tender, bowel sounds present, no masses/distention Neurological: no focal deficit Psychiatric: normal mood and affect, good judgment and insight, intact recent and remote memory FMR H&P: Results - Labs Result Diagrams: 04/07/20 03:54 04/07/20 03:54 Lab results: WBC 8.3 thou/uL (4.8-10.8) 04/06/20 19:28 Hgb 10.3 g/dL (12.0-16.0) L 04/06/20 19:28 Hct 30.4 % (36.0-47.0) L 04/06/20 19:28 MCV 85.7 fL (78.0-98.0) 04/06/20 19:28 Plt Count 222 thou/uL (130-400) 04/06/20 19:28 Neutrophils % 70.3 % (42.0-75.0) 04/06/20 19:28 Sodium 137 mmol/L (136-145) 04/06/20 19:28 Potassium 4.0 mmol/L (3.5-5.1) 04/06/20 19:28 Chloride 99 mmol/L (98-107) 04/06/20 19:28 Carbon Dioxide 25 mmol/L (23-31) 04/06/20 19:28 BUN 32 mg/dL (9.8-20.1) H 04/06/20 19:28 Creatinine 1.75 mg/dL (0.6-1.1) H 04/06/20 19:28 Glucose 125 mg/dL (83-110) H 04/06/20 19:28 Calcium 10.0 mg/dL (7.8-10.44) 04/06/20 19:28 Total Bilirubin 0.2 mg/dL (0.2-1.2) 04/06/20 19:28 AST 15 U/L (5-34) 04/06/20 19:28 ALT 8 U/L (8-55) 04/06/20 19:28 Alkaline Phosphatase 94 U/L (40-110) 04/06/20 19:28 Creatine Kinase 52 U/L (29-168) 04/06/20 19:51 B-Natriuretic Peptide 126.0 pg/mL (0-100) H 04/06/20 19:23 Serum Total Protein 7.9 g/dL (6.0-8.3) 04/06/20 19:28 Albumin 4.4 g/dL (3.4-4.8) 04/06/20 19:28 Lipase 79 U/L (8-78) H 04/06/20 19:51 - Radiology Interpretation Chest x-ray Status: image reviewed by me, report reviewed by me (no acute cardiopulmonary process) FMR H&P: A/P - Plan ##Typical Chest Pain -s/p nitro in ED with improvement -CXR neg, EKG no ST changes, trop x3 neg -BNP 126, lower than previous admissions -echo in [facility] office visit was wnl according to daughter -NPO for stress in AM ##BR[place] -Bun 32 Detail Manager 1.75 -monitor in AM with labs ##DM Type 2 -on metformin at home -SSI as needed ##HTN -continue home meds ##CAD s/p CABG -continue home meds ##GERD -continue home meds ##Anxiety/depression -continue home meds CODE: FULL DVT: Lovenox PCP: BRITTANY Dispo: admitted to telemetry for observation. NPO for stress in AM. FMR H&P: Upper Level - Plan Date/Time: 04/06/202056 Ms Kinsey is a 47yo female with pmh of CAD s/p CABG x4v in 2016, HTN, DMII, CHEN who presented with 1 day of deep tight chest pain. Denied radiation, SOB, diaphoresis. Not worse with exertion. Pain improved with Nitro but still pres ent. PE: General: NAD CV: RRR, no murmur Pulm: CTA b/l Extremities: No edema A/P: Typical Chest Pain - Initial trop neg, BNP 126, CXR no acute findings, EKG with no signs of acute ischemia. HEART score: 4. Continue to trend trops. Admit to telemetry. NPO at midnight, ordered stress test for AM. EKG for return of chest pain. [place] - Cr 1.75 with baseline <1. Monitor with AM labs. DMII - Last A1c 6.5 01/21/20. Continue home meds CHEN - Continue home CPAP I, Oneida Ha, have evaluated this patient and agree with findings/plan as outlined by legal summer intern resident. Pertinent changes/additions are listed here. Addendum - Attending - Attending Attestation Date/Time: 04/07/20 [id number] I personally evaluated the patient and discussed the management with Dr. Gray on 04/06/20 I agree with the History, Examination, Assessment and Plan documented above with any addition or exceptions noted below - 74 y/o F with h/o DM, HTN, HLD, CAD s/p CABG who reported to ED today with c/o CP for the past day. She states that the pain was non-radiating and was a persistent deep pressure and this is the first time she had experienced pain like this. She mentioned that her BP has been high with her SBP in the 180s at home, however, her BP has tended to run high in this range. She denied SOB, headache, PND, SHETTY. PMH/PSH/Meds/SH reviewed and agree with resident's documentation. Afebrile VSS. Exam repeated by me and agree with resident's findings. Labs: H/H=10.3/30.4, Na= 137, K=4.0, BUN/Cr=32/1.70, Kzs=122, FSP=056, trop I<0.010. CXR- NAD. A/P: 1) Chest pain - will trend cardiac enzymes; plan for stress test in AM. 2) HTn- stable; continue home meds.
[2020-04-06] MEDS ORDERED: Ondansetron ODT 4 MG TAB PO PRN (21:28)
[2020-04-06] MEDS ORDERED: Ondansetron PF 4 MG/2 ML Vial IVP PRN (21:28)
[2020-04-06] MEDS ORDERED: Acetaminophen 325 MG TAB PO PRN (21:28)
[2020-04-06 23:08] VITALS: BMI 26.6
[2020-04-07] MEDS ORDERED: HumaLOG 300 UNITS/3 ML VIAL SC PRN (01:18)
[2020-04-07] MEDS ORDERED: Dextrose 5% in Water 1,000 ML IV PRN (01:18)
[2020-04-07] MEDS ORDERED: Dextrose 50% Abboject 50 ML SYRINGE SLOW IVP PRN (01:18)
[2020-04-07] MEDS: Lactated Ringer's 1,000 ML IV SCH ×2 (04:46→16:13)
[2020-04-07 04:55] LABS: #Eosinphils 0.1 thou/uL (0.0-0.7); #Lymphocytes 1.7 thou/uL (1.20-3.40); #Monocytes 0.5 thou/uL (0.11-0.59); #Neutrophils 3.9 thou/uL (1.40-6.50); %Basophils 0.7 % (0.0-1.0); %Eosinophils 1.3 % (0.0-10.0); %Lymphocytes 27.8 % (21.0-51.0); %Monocytes 7.5 % (0.0-10.0); %Neutrophils 62.7 % (42.0-75.0); Hemoglobin 9.4 g/dL (12.0-16.0); Mean Corpuscular Hemoglobin 28.5 pg (27.0-31.0); Mean Corpuscular Volume 86.3 fL (78.0-98.0); Mean Platelet Volume 8.3 fL (7.4-10.4); Platelet Count 205 thou/uL (130-400); White Blood Cell (WBC) Count 6.2 thou/uL (4.8-10.8)
[2020-04-07 05:16] LABS: Troponin I Less than 0.010 ng/mL (< 0.028)
[2020-04-07 05:22] LABS: Anion Gap 14 mmol/L (10-20); BUN (Urea Nitrogen) 28 mg/dL (9.8-20.1); Calc. Creatinine Clearance 35 mL/min (70-130); Calcium 9.4 mg/dL (7.8-10.44); Carbon Dioxide 28 mmol/L (23-31); Chloride 102 mmol/L (98-107); Estimated GFR-MDRD 36; Glucose 109 mg/dL (83-110); Sodium 140 mmol/L (136-145)
[2020-04-07] MEDS ORDERED: Carvedilol 6.25 MG TAB PO SCH (08:00)
[2020-04-07] MEDS ORDERED: ADENOSINE 60 MG/20 ML VIAL ONE (08:47)
[2020-04-07] MEDS ORDERED: hydrALAZINE 25 MG TAB PO SCH (09:00)
[2020-04-07] MEDS ORDERED: Ferrous Sulfate 325 MG TAB PO SCH (09:00)
[2020-04-07] MEDS ORDERED: Enoxaparin Sodium 40 MG/0.4 ML SYRINGE SC SCH (09:00)
[2020-04-07] MEDS ORDERED: Aspirin 325 mg Enteric Coated Tablet PO SCH (09:00)
[2020-04-07] MEDS ORDERED: NIFEdipine XL 90 MG TAB PO SCH (09:00)
[2020-04-07] MEDS ORDERED: Aspirin 300 MG Suppository PR SCH (09:00)
--- NOTE | 2020-04-07 09:36 | PDOC.FM ---
- Subjective Subjective: Pt doing well this am. She reports CP is sharp and still present but improved. Did not get BP meds yesterday and BP high this morning however denies SCOTT, vision changes. Denies abd pain, reflux. Plan for stress test later today. - Objective MAR Reviewed: Yes Vital Signs & Weight: Vital Signs (12 hours) Temp Pulse Resp BP BP BP Pulse Ox 04/07/20 08:32 53 L 193/77 H 04/07/20 08:00 98.2 F 53 L 14 196/81 H 98 04/07/20 04:35 97.9 F 51 L 18 159/67 H 98 04/06/20 22:50 97.9 F 55 L 16 177/72 H 97 Weight Weight 66.179 kg Result Diagrams: 04/07/20 03:54 04/07/20 03:54 Radiology: CXR wnl Phys Exam - Physical Examination Constitutional: NAD HEENT: PERRLA Neck: no nodes, no JVD Respiratory: no wheezing, no rales, clear to auscultation bilateral Cardiovascular: RRR, no significant murmur Gastrointestinal: soft, non-tender, no distention, positive bowel sounds Musculoskeletal: pulses present trace LE b/l edema Neurological: normal sensation, moves all 4 limbs Psychiatric: normal affect, A&O x 3 Skin: no rash, cap refill <2 seconds Dx/Plan (1) Atypical chest pain Code(s): R07.89 - OTHER CHEST PAIN Status: Acute (2) Acute kidney injury Code(s): N17.9 - ACUTE KIDNEY FAILURE, UNSPECIFIED Status: Acute (3) CKD (chronic kidney disease) stage 3, GFR 30-59 ml/min Status: Chronic (4) Diabetes mellitus type 2 Code(s): E11.9 - TYPE 2 DIABETES MELLITUS WITHOUT COMPLICATIONS Status: Chronic - Plan Plan: Atypical CP in setting of CAD s/p CABG: -NPO for stress today -not on statin d/t age. -recent echo in office reported as normal BR[place] on CKD3: -improved from yesterday -continue mIVF since NPO -no recent med changes HTN: -elevated today but likely d/t no meds last night -resume home meds, hold BB for stress T2DM: -A1c 6.5 01/2020 in the clinic. Dispo: pending stress test, could potentially d/c today. Addendum - Attending - Attending Attestation Date/Time: 04/07/20 5099 I personally evaluated the patient and discussed the management with Dr. Thompson. I agree with the History, Examination, Assessment and Plan documented above with any addition or exceptions noted below. Stress test today. dispo pending results.
[2020-04-07 14:17] LABS: SARS-CoV-2 MS2 Positive; SARS-CoV-2 N Gene Negative; SARS-CoV-2 S Gene Negative; SARS-CoV-2 by NAA Not Detected (NotDetected); SARS-CoV-2 orf1ab Negative
--- NOTE | 2020-04-07 15:48 | NM ---
Radionucleotide stress and rest myocardial perfusion scan with CT attenuation correction and SPECT im aging Left ventricular wall motion evaluation and ejection fraction HISTORY: Chest pain. FINDINGS: Adenosine protocol. There is heterogeneous uptake of radiotracer throughout the left ventri cular myocardium. No focal perfusion defect or reversibility. QGS analysis of gated SPECT images shows dyskinetic motion of the septum, consistent with prior CABG. Ejection fraction calculated at 58%. IMPRESSION : No evidence of ischemia. Normal LVEF.
[2020-04-07 16:13] VITALS: BP 171/71; TEMP 97.8
--- NOTE | 2020-04-08 16:29 | PDOC.DS.DS ---
Provider - Provider Date of Admission: 04/06/20 20:57 Date of Discharge: 04/07/20 Admitting Provider: Sonia Ann MD Consultations: None Primary Care Physician: [facility] Course - Hospital Course Hospital Course: Pt is a 74yo F with PMH of CAD s/p CABG, CKD3, HTN, and T2DM admitted for atypical CP and BROOK[place]N. Atypical CP in setting of CAD s/p CABG: -stress test negative. -not on statin d/t age. -recent echo in office reported as normal, has f/u scheduled with Dr. Ceballos [place]OOK[place]N on CKD3: -received maitenance IVF and BR[place]N improved however needs repeat BMP within 1 week at f/u -no recent med changes, appeared to be prerenal HTN: -elevated initially but improved with home meds. No medication changes made. T2DM, well controlled: -A1c 6.5 01/2020 in the clinic. Pertinent Studies: Stress test: no reversible ischemia, normal LVEF Resuscitation Status: 04/06/20 21:28 Resuscitation Status Routine Co-Sign Provider: Vick Resuscitation Status: FULL: Full Resuscitation Discussed with: patients - Labs Lab Results: 04/07/20 03:54 04/07/20 03:54 Abnormal Lab Results - Last 48 hrs 04/06/20 19:23: B-Natriuretic Peptide 126.0 H 04/06/20 19:28: BUN 32 H, Creatinine 1.75 H 04/06/20 19:28: RBC 3.55 L, Hgb 10.3 L, Hct 30.4 L 04/06/20 19:51: Lipase 79 H 04/07/20 03:54: BUN 28 H, Creatinine 1.43 H 04/07/20 03:54: RBC 3.30 L, Hgb 9.4 L, Hct 28.5 L - Diagnostic Interpretation Chest x-ray Status: image reviewed by me Additional comments: no acute findings - Physical Exam Vitals: Weight Weight 66.179 kg Physical Exam: The patient was seen and examined on the day of discharge. Problem - Discharge Plan Assessment: See hospital course above. - Problem (1) Atypical chest pain Code(s): R07.89 - OTHER CHEST PAIN Status: Acute (2) Acute kidney injury Code(s): N17.9 - ACUTE KIDNEY FAILURE, UNSPECIFIED Status: Acute (3) CKD (chronic kidney disease) stage 3, GFR 30-59 ml/min Status: Chronic (4) Diabetes mellitus type 2 Code(s): E11.9 - TYPE 2 DIABETES MELLITUS WITHOUT COMPLICATIONS Status: Chronic Plan - Discharge Medications Prescriptions: Aspirin [Ecotrin Regular Strength] 325 mg PO DAILY 30 Days #30 tab Home Medications: Medication Instructions Recorded Confirmed Type Sertraline HCl [Zoloft] 50 mg PO HS 10/30/15 04/06/20 History Carvedilol [Coreg] 6.25 mg PO BID-WM #0 tab 11/01/15 04/06/20 Rx Ferrous Sulfate [Feosol] 325 mg PO BID 01/23/20 04/06/20 History Isosorbide Mononitrate [Imdur ER] 30 mg PO DAILY 01/23/20 04/06/20 History Omeprazole 20 mg PO DAILY 01/23/20 04/06/20 History hydrALAZINE [Apresoline] 50 mg PO BID 01/23/20 04/06/20 History Ondansetron [Zofran ODT] 4 mg PO Q6HR PRN #10 tab 01/25/20 04/06/20 Rx Aspirin [Ecotrin Regular Strength] 325 mg PO DAILY 30 Days #30 tab 04/07/20 Rx Furosemide [Lasix] 20 mg PO PRN PRN 04/07/20 04/07/20 History NIFEdipine [Nifedipine ER] 1 tab PO BID 04/07/20 04/07/20 History Allergies: codeine [Codeine] Allergy (Unknown, Verified 02/12/16 14:50) Emesis per pt pravastatin Allergy (Verified 04/06/20 23:04) - Discharge Instructions Activity:: Activity as Tolerated Nourishment:: Diabetic Diet, Heart Healthy Diet Therapies:: Not Applicable Equipment/Supplies:: Not Applicable IV Therapy:: Not Applicable - Follow up Plan Referrals: [facility] [Primary Care Provider] - 7 Days (Willl need BMP in 1 week at f/u. ) Disposition: HOME Quality - Care Measures CORE MEASURES:: N/A
--- NOTE | 2020-04-11 17:53 | EKG ---
Test Reason : Blood Pressure : / mmHG Vent. Rate : 060 BPM Atrial Rate : 060 BPM P-R Int : 156 ms QRS Dur : 088 ms QT Int : 448 ms P-R-T Axes : 032 -09 070 degrees QTc Int : 448 ms Normal sinus rhythm Moderate voltage criteria for LVH, may be normal variant Nonspecific T wave abnormality Abnormal ECG Confirmed by SUSANA KIM, CLARIBEL ([id number]), fan mail editor SHERYL ZAVALA ([id number]) on 04/11/2020 5:52:53 PM Referred By: Confirmed By:CLARIBEL MEZA MD
== END 2020-04-07 16:50 | disposition home or self-care (01) ==
LOC: ERS 19:05 → 2SE 20:57 → INTOOBSV 20:58 → UNDOADMOB 20:58 → 2SE 20:58
PROVIDERS: ADMIT Family Medicine; ATTEND Family Medicine
DX: R07.89 Other chest pain (principal); N17.9 Acute kidney failure, unspecified; I25.10 Atherosclerotic heart disease of native coronary artery without angina pectoris; I12.9 Hypertensive chronic kidney disease with stage 1 through stage 4 chronic kidney disease, or unspecified chronic kidney disease; E11.22 Type 2 diabetes mellitus with diabetic chronic kidney disease; N18.30 Chronic kidney disease, stage 3 unspecified; F41.9 Anxiety disorder, unspecified; F32.9 Major depressive disorder, single episode, unspecified; G47.33 Obstructive sleep apnea (adult) (pediatric); Z79.82 Long term (current) use of aspirin; Z79.899 Other long term (current) drug therapy; Z88.5 Allergy status to narcotic agent; Z88.8 Allergy status to other drugs, medicaments and biological substances; Z95.1 Presence of aortocoronary bypass graft
CPT/HCPCS: 71045; 78452; 80048; 80053; 82550; 82962; 83690; 83880; 84484 ×2; 85025 ×2; 93005; 93017; 94760; 99285; A9500; U0003; 36415; 36416; 87635; 96372; G0378; J0153; J1650

== ENCOUNTER 2020-08-05 17:07 | Observation (INO) | payer MEDICARE, MEDICAID ==
[2020-08-05 17:31] LABS: #Eosinphils 0.1 thou/uL (0.0-0.7); #Lymphocytes 1.2 thou/uL (1.20-3.40); #Monocytes 0.5 thou/uL (0.11-0.59); #Neutrophils 5.6 thou/uL (1.40-6.50); %Basophils 0.1 % (0.0-1.0); %Eosinophils 1.5 % (0.0-10.0); %Lymphocytes 16.8 % (21.0-51.0); %Monocytes 6.2 % (0.0-10.0); %Neutrophils 75.4 % (42.0-75.0); Hemoglobin 9.7 g/dL (12.0-16.0); Mean Corpuscular HGB CONC 33.2 g/dL (32.0-36.0); Mean Corpuscular Hemoglobin 29.4 pg (27.0-31.0); Mean Corpuscular Volume 88.5 fL (78.0-98.0); Mean Platelet Volume 7.5 fL (7.4-10.4); Platelet Count 207 thou/uL (130-400); RBC Distribution Width 13.6 % (11.5-14.5); Red Blood Cell (RBC) Count 3.28 mill/uL (4.20-5.40); White Blood Cell (WBC) Count 7.4 thou/uL (4.8-10.8)
[2020-08-05] MEDS ORDERED: Furosemide 40 MG/4 ML VIAL ONE (17:38)
[2020-08-05] MEDS ORDERED: Aspirin 325 MG TAB ONE (17:38)
[2020-08-05] MEDS ORDERED: Nitroglycerin 2% Ointment 1 INCH/1 GM Packet ONE (17:38)
[2020-08-05 17:52] LABS: ALT (SGPT) 13 U/L (8-55); AST (SGOT) 19 U/L (5-34); Alkaline Phosphatase 103 U/L (40-110); Anion Gap 17 mmol/L (10-20); BUN (Urea Nitrogen) 31 mg/dL (9.8-20.1); Bilirubin, Total 0.4 mg/dL (0.2-1.2); Calc. Creatinine Clearance 0 mL/min (70-130); Calcium 9.3 mg/dL (7.8-10.44); Carbon Dioxide 19 mmol/L (23-31); Chloride 104 mmol/L (98-107); Globulin 3.5 g/dL (2.4-3.5); Glucose 211 mg/dL (83-110); Protein, Total 7.5 g/dL (5.8-8.1); Sodium 136 mmol/L (136-145)
[2020-08-05] MEDS ORDERED: Aspirin Chewable 81 MG TAB ONE (18:07)
[2020-08-05] MEDS ORDERED: Senokot S 8.6-50 MG TAB PO PRN (19:21)
[2020-08-05] MEDS ORDERED: Acetaminophen 325 MG TAB PO PRN (19:21)
[2020-08-05] MEDS ORDERED: Ondansetron PF 4 MG/2 ML Vial IVP PRN (19:21)
[2020-08-05] MEDS ORDERED: Dextrose 5% in Water 1,000 ML IV PRN (19:21)
[2020-08-05] MEDS ORDERED: HumaLOG 300 UNITS/3 ML VIAL SC PRN ×2 (19:21)
[2020-08-05] MEDS ORDERED: Ondansetron ODT 4 MG TAB PO PRN (19:21)
[2020-08-05] MEDS ORDERED: Dextrose 50% Abboject 50 ML SYRINGE SLOW IVP PRN (19:21)
[2020-08-05 20:48] LABS: Troponin I Less than 0.010 ng/mL (< 0.028)
[2020-08-05 23:59] LABS: Troponin I Less than 0.010 ng/mL (< 0.028)
[2020-08-06 00:04] VITALS: BMI 28.1
[2020-08-06] MEDS ORDERED: hydrALAZINE 20 MG/ML VIAL SLOW IVP PRN (00:09)
[2020-08-06] MEDS: Heparin 5,000 UNITS/ML VIAL SC SCH ×3 (00:30→16:27)
[2020-08-06] MEDS ORDERED: EVOLOCUMAB 420 MG/3.5 ML SC SCH (00:30)
[2020-08-06 01:19] LABS: Iron 29 ug/dL (50-170); Iron Binding Capacity, Total 269 mcg/dL (265-497)
[2020-08-06 04:09] LABS: Ferritin 48.29 ng/mL (10-291)
[2020-08-06 04:34] LABS: SARS-CoV-2 PCR by NAA Not Detected (NotDetected)
[2020-08-06 05:18] LABS: #Eosinphils 0.1 thou/uL (0.0-0.7); #Lymphocytes 1.3 thou/uL (1.20-3.40); #Monocytes 0.5 thou/uL (0.11-0.59); #Neutrophils 4.5 thou/uL (1.40-6.50); %Basophils 0.1 % (0.0-1.0); %Eosinophils 1.8 % (0.0-10.0); %Lymphocytes 20.4 % (21.0-51.0); %Monocytes 8.4 % (0.0-10.0); %Neutrophils 69.3 % (42.0-75.0); Hemoglobin 8.5 g/dL (12.0-16.0); Mean Corpuscular Hemoglobin 29.3 pg (27.0-31.0); Mean Corpuscular Volume 88.8 fL (78.0-98.0); Mean Platelet Volume 7.7 fL (7.4-10.4); Platelet Count 196 thou/uL (130-400); RBC Distribution Width 13.6 % (11.5-14.5); White Blood Cell (WBC) Count 6.4 thou/uL (4.8-10.8)
[2020-08-06 05:40] LABS: ALT (SGPT) 9 U/L (8-55); AST (SGOT) 10 U/L (5-34); Albumin 3.5 g/dL (3.4-4.8); Alkaline Phosphatase 81 U/L (40-110); Anion Gap 11 mmol/L (10-20); BUN (Urea Nitrogen) 26 mg/dL (9.8-20.1); Bilirubin, Total 0.3 mg/dL (0.2-1.2); Calc. Creatinine Clearance 41 mL/min (70-130); Calcium 8.9 mg/dL (7.8-10.44); Carbon Dioxide 28 mmol/L (23-31); Chloride 105 mmol/L (98-107); Globulin 2.6 g/dL (2.4-3.5); Glucose 133 mg/dL (83-110); Potassium 3.4 mmol/L (3.5-5.1); Protein, Total 6.1 g/dL (5.8-8.1); Sodium 141 mmol/L (136-145)
[2020-08-06] MEDS ORDERED: Potassium Chloride 20 MEQ TAB PO SCH (06:45)
[2020-08-06 07:38] LABS: Hemoglobin A1c 7.3 % (4.0-6.0)
[2020-08-06] MEDS ORDERED: Carvedilol 6.25 MG TAB PO SCH (08:00)
[2020-08-06] MEDS ORDERED: Ferrous Sulfate 325 MG TAB PO SCH (08:00)
[2020-08-06] MEDS ORDERED: hydrALAZINE 25 MG TAB PO SCH ×2 (09:00→15:00)
[2020-08-06] MEDS ORDERED: Furosemide 20 MG TAB PO SCH (09:00)
[2020-08-06] MEDS ORDERED: Enoxaparin Sodium 40 MG/0.4 ML SYRINGE SC SCH (09:00)
[2020-08-06] MEDS ORDERED: NIFEdipine XL 30 MG TAB PO SCH (09:00)
[2020-08-06] MEDS ORDERED: Aspirin 325 mg Enteric Coated Tablet PO SCH (09:00)
[2020-08-06] MEDS ORDERED: Aspirin 81 mg Enteric Coated Tablet PO SCH (09:00)
[2020-08-06] MEDS ORDERED: Icosapent Ethyl 1 GM CAPSULE PO SCH (09:00)
[2020-08-06] MEDS ORDERED: guaiFENesin ER 600 MG TAB PO PRN (10:17)
[2020-08-06 11:55] VITALS: TEMP 98
[2020-08-06 14:20] VITALS: BP 172/62
== END 2020-08-06 16:47 | disposition home or self-care (01) ==
LOC: ERS 17:07 → 2SW 18:56
PROVIDERS: ADMIT Family Medicine; ATTEND Family Medicine
DX: R07.89 Other chest pain (principal); I13.0 Hypertensive heart and chronic kidney disease with heart failure and stage 1 through stage 4 chronic kidney disease, or unspecified chronic kidney disease; E11.22 Type 2 diabetes mellitus with diabetic chronic kidney disease; N18.32 Chronic kidney disease, stage 3b; I50.9 Heart failure, unspecified; D63.1 Anemia in chronic kidney disease; N17.9 Acute kidney failure, unspecified; E87.6 Hypokalemia; E78.5 Hyperlipidemia, unspecified; G47.33 Obstructive sleep apnea (adult) (pediatric); M10.9 Gout, unspecified; I48.0 Paroxysmal atrial fibrillation; Z79.899 Other long term (current) drug therapy; Z88.5 Allergy status to narcotic agent; Z88.8 Allergy status to other drugs, medicaments and biological substances; Z95.1 Presence of aortocoronary bypass graft; Z20.822 Contact with and (suspected) exposure to COVID-19
CPT/HCPCS: 71045; 80053 ×2; 82607; 82728; 82746; 82962; 83036; 83540; 83550; 83880; 84484 ×2; 85025 ×2; 85379; 93005; 93306; 96372; 96374; 96375; 97139; 99285; G0378 ×3; U0003; U0005; 36415; 36416; 87635; J0360; J1644; J1650; J1815; J1940

== ENCOUNTER 2021-03-05 07:32 | Emergency (ER) | payer MEDICARE, MEDICAID | END 2021-03-05 09:23 | disposition home or self-care (01) | LOC: ERS 07:32 | DX: I10 Essential (primary) hypertension (principal); R29.700 NIHSS score 0; Z79.84 Long term (current) use of oral hypoglycemic drugs; Z79.899 Other long term (current) drug therapy | CPT/HCPCS: 99283 ==

== ENCOUNTER 2021-05-21 16:54 | Observation (INO) | payer MEDICARE, MEDICAID ==
[2021-05-21 17:45] LABS: #Eosinphils 0.2 thou/uL (0.0-0.7); #Lymphocytes 1.5 thou/uL (1.20-3.40); #Monocytes 0.5 thou/uL (0.11-0.59); #Neutrophils 4.9 thou/uL (1.40-6.50); %Basophils 0.1 % (0.0-1.0); %Eosinophils 2.2 % (0.0-10.0); %Lymphocytes 21.1 % (21.0-51.0); %Monocytes 7.1 % (0.0-10.0); %Neutrophils 69.5 % (42.0-75.0); Hemoglobin 9.4 g/dL (12.0-16.0); Mean Corpuscular HGB CONC 34.1 g/dL (32.0-36.0); Mean Corpuscular Hemoglobin 30.5 pg (27.0-31.0); Mean Corpuscular Volume 89.5 fL (78.0-98.0); Mean Platelet Volume 7.1 fL (7.4-10.4); Platelet Count 201 thou/uL (130-400); RBC Distribution Width 13.5 % (11.5-14.5); Red Blood Cell (RBC) Count 3.08 mill/uL (4.20-5.40); White Blood Cell (WBC) Count 7.1 thou/uL (4.8-10.8)
[2021-05-21] MEDS ORDERED: Acetaminophen 500 MG TAB ONE (17:48)
[2021-05-21] MEDS ORDERED: Magnesium 2 GM/50 ML BAG (IN WATER) ONE (17:48)
[2021-05-21] MEDS ORDERED: diphenhydrAMINE 50 MG/ML VIAL ONE (17:48)
[2021-05-21] MEDS ORDERED: Metoclopramide HCl 10 MG/2 ML VIAL ONE (17:48)
[2021-05-21 18:05] LABS: ALT (SGPT) 8 U/L (8-55); AST (SGOT) 12 U/L (5-34); Alkaline Phosphatase 74 U/L (40-110); Anion Gap 12 mmol/L (10-20); BUN (Urea Nitrogen) 34 mg/dL (9.8-20.1); Bilirubin, Total 0.2 mg/dL (0.2-1.2); Calc. Creatinine Clearance 0 mL/min (70-130); Calcium 10.1 mg/dL (7.8-10.44); Carbon Dioxide 23 mmol/L (23-31); Chloride 103 mmol/L (98-107); Globulin 3.3 g/dL (2.4-3.5); Glucose 130 mg/dL (83-110); Magnesium 1.6 mg/dL (1.6-2.6); Potassium 4.1 mmol/L (3.5-5.1); Protein, Total 7.3 g/dL (5.8-8.1); Sodium 134 mmol/L (136-145)
[2021-05-21] MEDS ORDERED: Aspirin 325 MG TAB ONE (19:40)
[2021-05-21] MEDS ORDERED: Acetaminophen 325 MG TAB PO PRN (20:49)
[2021-05-21] MEDS ORDERED: Ondansetron ODT 4 MG TAB PO PRN (20:49)
[2021-05-21] MEDS ORDERED: Senokot S 8.6-50 MG TAB PO PRN (20:49)
[2021-05-21 22:39] LABS: Troponin I 0.012 ng/mL (< 0.028)
[2021-05-21 23:42] VITALS: BMI 26.7
[2021-05-22] MEDS ORDERED: hydrALAZINE 20 MG/ML VIAL SLOW IVP SCH (00:15)
[2021-05-22] MEDS ORDERED: guaiFENesin ER 600 MG TAB PO PRN (01:23)
[2021-05-22] MEDS ORDERED: EVOLOCUMAB 420 MG/3.5 ML SC SCH ×2 (01:30→12:00)
[2021-05-22 01:34] LABS: Troponin I Less than 0.010 ng/mL (< 0.028)
[2021-05-22] MEDS ORDERED: Dextrose 5% in Water 1,000 ML IV PRN (02:04)
[2021-05-22] MEDS ORDERED: HumaLOG 300 UNITS/3 ML VIAL SC PRN ×2 (02:04)
[2021-05-22] MEDS ORDERED: Dextrose 50% Abboject 50 ML SYRINGE SLOW IVP PRN (02:04)
[2021-05-22] MEDS: NIFEdipine XL 30 MG TAB PO SCH ×4 (04:31→20:30)
[2021-05-22] MEDS: hydrALAZINE 25 MG TAB PO SCH ×3 (04:31→20:30)
[2021-05-22 05:24] LABS: #Eosinphils 0.1 thou/uL (0.0-0.7); #Lymphocytes 1.3 thou/uL (1.20-3.40); #Monocytes 0.4 thou/uL (0.11-0.59); #Neutrophils 3.3 thou/uL (1.40-6.50); %Basophils 0.2 % (0.0-1.0); %Monocytes 8.6 % (0.0-10.0); %Neutrophils 64.2 % (42.0-75.0); Hemoglobin 8.6 g/dL (12.0-16.0); Mean Corpuscular HGB CONC 32.4 g/dL (32.0-36.0); Mean Corpuscular Hemoglobin 29.2 pg (27.0-31.0); Mean Corpuscular Volume 90.2 fL (78.0-98.0); Mean Platelet Volume 7.6 fL (7.4-10.4); Platelet Count 184 thou/uL (130-400); RBC Distribution Width 13.4 % (11.5-14.5); Red Blood Cell (RBC) Count 2.95 mill/uL (4.20-5.40); White Blood Cell (WBC) Count 5.1 thou/uL (4.8-10.8)
[2021-05-22 05:29] LABS: ALT (SGPT) 7 U/L (8-55); AST (SGOT) 10 U/L (5-34); Albumin 3.5 g/dL (3.4-4.8); Alkaline Phosphatase 74 U/L (40-110); Anion Gap 10 mmol/L (10-20); BUN (Urea Nitrogen) 32 mg/dL (9.8-20.1); Bilirubin, Total 0.2 mg/dL (0.2-1.2); Calc. Creatinine Clearance 42 mL/min (70-130); Calcium 9.7 mg/dL (7.8-10.44); Carbon Dioxide 26 mmol/L (23-31); Chloride 107 mmol/L (98-107); Globulin 2.7 g/dL (2.4-3.5); Glucose 106 mg/dL (83-110); Protein, Total 6.2 g/dL (5.8-8.1); Sodium 139 mmol/L (136-145)
[2021-05-22 05:30] LABS: Cardiac Risk 2.4 (Less than 4.5)
[2021-05-22] MEDS ORDERED: hydrALAZINE 20 MG/ML VIAL SLOW IVP PRN (08:07)
[2021-05-22] MEDS ORDERED: hydrALAZINE 20 MG/ML VIAL ONE (08:11)
[2021-05-22] MEDS: Icosapent Ethyl 1 GM CAPSULE PO SCH ×2 (08:19→20:33)
[2021-05-22] MEDS: Ferrous Sulfate 325 MG TAB PO SCH ×2 (08:19→20:30)
[2021-05-22] MEDS: Enoxaparin Sodium 40 MG/0.4 ML SYRINGE SC SCH (08:19)
[2021-05-22] MEDS: Furosemide 20 MG TAB PO SCH (08:19)
[2021-05-22] MEDS: Aspirin Chewable 81 MG TAB PO SCH (08:19)
[2021-05-22] MEDS ORDERED: NIFEdipine XL 30 MG TAB PO SCH (09:00)
[2021-05-22] MEDS ORDERED: Non-Formulary Item 1 EACH (Omeprazole [Omeprazole] 20 MG Capsule.Dr) PO SCH (09:00)
[2021-05-22] MEDS ORDERED: ICOSAPENT ETHYL 1 GM PO SCH (09:00)
[2021-05-22] MEDS ORDERED: FLU VACC QS2021-22(65YR UP)/PF 240 MCG/0.7 ML SYRINGE IM ONE (09:00)
[2021-05-22] MEDS ORDERED: ADENOSINE 60 MG/20 ML VIAL ONE (10:49)
[2021-05-22 16:07] LABS: SARS-CoV-2 PCR by NAA Not Detected (NotDetected)
[2021-05-22] MEDS ORDERED: Non-Formulary Item 1 EACH (Sertraline Hcl [Zoloft] 50 MG Tab) PO SCH (21:00)
[2021-05-23 06:19] LABS: Anion Gap 12 mmol/L (10-20); BUN (Urea Nitrogen) 29 mg/dL (9.8-20.1); Calc. Creatinine Clearance 37 mL/min (70-130); Calcium 9.6 mg/dL (7.8-10.44); Carbon Dioxide 28 mmol/L (23-31); Chloride 102 mmol/L (98-107); Glucose 140 mg/dL (83-110); Potassium 3.9 mmol/L (3.5-5.1); Sodium 138 mmol/L (136-145)
[2021-05-23] MEDS ORDERED: Carvedilol 6.25 MG TAB PO SCH ×2 (08:30→17:00)
[2021-05-23] MEDS ORDERED: NIFEdipine XL 90 MG TAB PO SCH (09:00)
[2021-05-23] MEDS: Aspirin Chewable 81 MG TAB PO SCH (09:24)
[2021-05-23] MEDS: hydrALAZINE 25 MG TAB PO SCH (09:26)
[2021-05-23] MEDS: Icosapent Ethyl 1 GM CAPSULE PO SCH (09:27)
[2021-05-23] MEDS: Enoxaparin Sodium 40 MG/0.4 ML SYRINGE SC SCH (09:28)
[2021-05-23] MEDS: Furosemide 20 MG TAB PO SCH (09:28)
[2021-05-23] MEDS: Ferrous Sulfate 325 MG TAB PO SCH (09:28)
[2021-05-23 12:04] VITALS: BP 128/58; TEMP 98.4
== END 2021-05-23 14:10 | disposition home or self-care (01) ==
LOC: ERS 16:54 → 2NO 20:49
PROVIDERS: ADMIT Student in an Organized Health Care Education/Training Program; ATTEND Student in an Organized Health Care Education/Training Program
DX: R07.89 Other chest pain (principal); R51.9 Headache, unspecified; I12.9 Hypertensive chronic kidney disease with stage 1 through stage 4 chronic kidney disease, or unspecified chronic kidney disease; E11.22 Type 2 diabetes mellitus with diabetic chronic kidney disease; N18.32 Chronic kidney disease, stage 3b; E78.5 Hyperlipidemia, unspecified; D50.9 Iron deficiency anemia, unspecified; G47.33 Obstructive sleep apnea (adult) (pediatric); Z79.899 Other long term (current) drug therapy; Z88.5 Allergy status to narcotic agent; Z88.8 Allergy status to other drugs, medicaments and biological substances; Z95.1 Presence of aortocoronary bypass graft
CPT/HCPCS: 70450; 71045; 78452; 80048; 80053; 80061; 82962 ×2; 83036; 83735; 83880; 84484 ×3; 85025; 90662; 93005; 93017; 94760; 96365; 96367; 96372 ×2; 96375 ×2; 96376 ×2; 97116; 97139; 99285; A9500; G0008; G0378 ×4; U0003; U0005; 36415; 36416; 84443; 90471; J0153; J0360; J1200; J1650; J2765; J3475

== ENCOUNTER 2021-05-30 10:20 | Emergency (ER) | payer MEDICARE, MEDICAID ==
[2021-05-30 12:57] LABS: #Eosinphils 0.1 thou/uL (0.0-0.7); #Lymphocytes 1.1 thou/uL (1.20-3.40); #Monocytes 0.5 thou/uL (0.11-0.59); #Neutrophils 5.9 thou/uL (1.40-6.50); %Basophils 0.3 % (0.0-1.0); %Eosinophils 1.6 % (0.0-10.0); %Lymphocytes 13.9 % (21.0-51.0); %Monocytes 6.4 % (0.0-10.0); %Neutrophils 77.8 % (42.0-75.0); Hemoglobin 9.7 g/dL (12.0-16.0); Mean Corpuscular HGB CONC 33.8 g/dL (32.0-36.0); Mean Corpuscular Hemoglobin 30.7 pg (27.0-31.0); Mean Corpuscular Volume 90.8 fL (78.0-98.0); Mean Platelet Volume 6.9 fL (7.4-10.4); Platelet Count 189 thou/uL (130-400); RBC Distribution Width 13.5 % (11.5-14.5); Red Blood Cell (RBC) Count 3.17 mill/uL (4.20-5.40); White Blood Cell (WBC) Count 7.6 thou/uL (4.8-10.8)
[2021-05-30 13:18] LABS: ALT (SGPT) 10 U/L (8-55); AST (SGOT) 13 U/L (5-34); Albumin 3.6 g/dL (3.4-4.8); Alkaline Phosphatase 85 U/L (40-110); Anion Gap 13 mmol/L (10-20); BUN (Urea Nitrogen) 40 mg/dL (9.8-20.1); Bilirubin, Total 0.3 mg/dL (0.2-1.2); Calc. Creatinine Clearance 0 mL/min (70-130); Calcium 9.5 mg/dL (7.8-10.44); Carbon Dioxide 22 mmol/L (23-31); Chloride 102 mmol/L (98-107); Glucose 217 mg/dL (83-110); Potassium 4.4 mmol/L (3.5-5.1); Protein, Total 6.6 g/dL (5.8-8.1); Sodium 133 mmol/L (136-145)
== END 2021-05-30 14:00 | disposition home or self-care (01) ==
LOC: ERS 10:20
DX: I95.9 Hypotension, unspecified (principal); T46.1X5A Adverse effect of calcium-channel blockers, initial encounter; I10 Essential (primary) hypertension
CPT/HCPCS: 36415; 71045; 80053; 83605; 83880; 84484; 85025; 93005

== ENCOUNTER 2022-02-08 08:15 | Emergency (ER) | payer OTHER, MEDICAID ==
[2022-02-08 09:49] LABS: #Eosinphils 0.1 thou/uL (0.0-0.7); #Lymphocytes 0.9 thou/uL (1.20-3.40); #Monocytes 0.4 thou/uL (0.11-0.59); #Neutrophils 5.2 thou/uL (1.40-6.50); %Basophils 0.2 % (0.0-1.0); %Eosinophils 1.4 % (0.0-10.0); %Lymphocytes 13.8 % (21.0-51.0); %Monocytes 6.6 % (0.0-10.0); Hemoglobin 11.7 g/dL (12.0-16.0); Mean Corpuscular HGB CONC 33.7 g/dL (32.0-36.0); Mean Corpuscular Volume 89.1 fL (78.0-98.0); Mean Platelet Volume 8.1 fL (7.4-10.4); Platelet Count 172 thou/uL (130-400); RBC Distribution Width 12.5 % (11.5-14.5); Red Blood Cell (RBC) Count 3.89 mill/uL (4.20-5.40); White Blood Cell (WBC) Count 6.7 thou/uL (4.8-10.8)
[2022-02-08] MEDS ORDERED: Aspirin Chewable 81 MG TAB ONE (10:00)
[2022-02-08 10:01] LABS: ALT (SGPT) 11 U/L (8-55); AST (SGOT) 16 U/L (5-34); Albumin 4.2 g/dL (3.4-4.8); Alkaline Phosphatase 108 U/L (40-110); Anion Gap 13 mmol/L (10-20); BUN (Urea Nitrogen) 34 mg/dL (9.8-20.1); Bilirubin, Total 0.7 mg/dL (0.2-1.2); Calc. Creatinine Clearance 0 mL/min (70-130); Calcium 9.5 mg/dL (7.8-10.44); Carbon Dioxide 25 mmol/L (23-31); Chloride 101 mmol/L (98-107); Estimated GFR 34; Glucose 215 mg/dL (83-110); Potassium 3.4 mmol/L (3.5-5.1); Protein, Total 7.2 g/dL (5.8-8.1); Sodium 136 mmol/L (136-145)
[2022-02-08] MEDS ORDERED: Potassium Chloride 20 MEQ TAB ONE (12:04)
== END 2022-02-08 14:04 | disposition home or self-care (01) ==
LOC: ERS 08:15
DX: R07.89 Other chest pain (principal); E11.22 Type 2 diabetes mellitus with diabetic chronic kidney disease; I12.9 Hypertensive chronic kidney disease with stage 1 through stage 4 chronic kidney disease, or unspecified chronic kidney disease; N18.9 Chronic kidney disease, unspecified; E87.6 Hypokalemia; Z95.1 Presence of aortocoronary bypass graft
CPT/HCPCS: 36415; 71045; 80053; 84484; 85025; 93005; 94760

== ENCOUNTER 2022-06-03 14:51 | Outpatient (CLI) | payer OTHER, MEDICAID | END 2022-06-03 14:52 | disposition home or self-care (01) | LOC: RAD 14:51 | PROVIDERS: ATTEND Student in an Organized Health Care Education/Training Program | DX: M25.512 Pain in left shoulder (principal); M79.9 Soft tissue disorder, unspecified; M47.812 Spondylosis without myelopathy or radiculopathy, cervical region | CPT/HCPCS: 72040 ==

== ENCOUNTER 2023-06-15 12:41 | Emergency (ER) | payer OTHER, MEDICAID ==
[2023-06-15 15:21] LABS: SARS-CoV-2 NAA Rapid Test DETECTED (NotDetected)
== END 2023-06-15 15:21 | disposition home or self-care (01) ==
LOC: ERS 12:41
DX: U07.1 COVID-19 (principal); J12.82 Pneumonia due to coronavirus disease 2019; I12.9 Hypertensive chronic kidney disease with stage 1 through stage 4 chronic kidney disease, or unspecified chronic kidney disease; E11.22 Type 2 diabetes mellitus with diabetic chronic kidney disease; N18.2 Chronic kidney disease, stage 2 (mild); E78.5 Hyperlipidemia, unspecified; Z79.899 Other long term (current) drug therapy
CPT/HCPCS: 0240U; 71045; 93005

== ENCOUNTER 2024-05-28 20:44 | Emergency (ER) | payer MEDICAID, OTHER ==
[2024-05-28] MEDS ORDERED: Bacitracin 1 PK ONE (21:22)
[2024-05-28] MEDS ORDERED: Acetaminophen 500 MG TAB ONE (22:09)
[2024-05-28] MEDS ORDERED: Ketorolac Tromethamine 30 MG (1 mL) VIAL ONE (22:09)
== END 2024-05-28 23:42 | disposition home or self-care (01) ==
LOC: ERS 20:44
DX: S80.12XA Contusion of left lower leg, initial encounter (principal); I10 Essential (primary) hypertension; W23.1XXA Caught, crushed, jammed, or pinched between stationary objects, initial encounter
CPT/HCPCS: 73590; 93005; J1885; 96372; 99283

== ENCOUNTER 2024-06-28 13:07 | Emergency (ER) | payer OTHER ==
[2024-06-28] MEDS ORDERED: Acetaminophen 500 MG TAB ONE (14:14)
[2024-06-28] MEDS ORDERED: Ondansetron PF 4 MG/2 ML Vial ONE (14:15)
[2024-06-28] MEDS ORDERED: hydrALAZINE 20 MG/ML VIAL ONE (14:15)
[2024-06-28 14:18] LABS: #Basophils Less than 0.03 10x3/uL (0.0-0.2); %Basophils 0.4 % (0.0-1.0); %Eosinophils 1.1 % (0.0-10.0); %Lymphocytes 20.8 % (21.0-51.0); %Monocytes 6.5 % (0.0-10.0); %Neutrophils 70.8 % (42.0-75.0); Hematocrit 33.8 % (36.0-47.0); Mean Corpuscular HGB CONC 32.5 g/dL (32.0-36.0); Mean Corpuscular Hemoglobin 27.9 pg (27.0-31.0); Mean Corpuscular Volume 85.8 fL (78.0-98.0); Mean Platelet Volume 9.7 fL (7.4-10.4); Platelet Count 203 10x3/uL (130-400); RBC Distribution Width 14.1 % (11.5-14.5); Red Blood Cell (RBC) Count 3.94 mill/uL (4.20-5.40)
[2024-06-28 14:38] LABS: ALT (SGPT) 10 U/L (Less than 34); AST (SGOT) 23 U/L (11-34); Albumin 4.2 g/dL (3.1-4.5); Alkaline Phosphatase 86 U/L (40-110); Anion Gap 18 mmol/L (10-20); BUN (Urea Nitrogen) 36 mg/dL (9.8-20.1); Bilirubin, Total 0.7 mg/dL (0.3-1.2); Calc. Creatinine Clearance 0 mL/min (70-130); Calcium 10.6 mg/dL (7.8-10.44); Carbon Dioxide 20 mmol/L (23-31); Chloride 106 mmol/L (98-107); Estimated GFR 33; Globulin 4.1 g/dL (2.4-3.5); Glucose 125 mg/dL (83-110); Lipase 44 U/L (8-78); Magnesium 1.8 mg/dL (1.6-2.6); Potassium 4.2 mmol/L (3.5-5.1); Protein, Total 8.3 g/dL (5.8-8.1); Sodium 140 mmol/L (136-145)
[2024-06-28 14:40] LABS: Troponin I 0.019 ng/mL (< 0.028)
[2024-06-28] MEDS ORDERED: Prochlorperazine 10 MG/2 ML VIAL ONE (15:23)
== END 2024-06-28 17:11 | disposition home or self-care (01) ==
LOC: ERS 13:07
DX: R11.2 Nausea with vomiting, unspecified (principal); T38.3X5A Adverse effect of insulin and oral hypoglycemic [antidiabetic] drugs, initial encounter; I12.9 Hypertensive chronic kidney disease with stage 1 through stage 4 chronic kidney disease, or unspecified chronic kidney disease; N18.2 Chronic kidney disease, stage 2 (mild); Z79.82 Long term (current) use of aspirin; Z79.899 Other long term (current) drug therapy
CPT/HCPCS: 71045; 83690; 83735; 84484; 93005; 94760; J0360; J0780; J2405; 80053; 84443; 85025; 96374; 96375

== ENCOUNTER 2025-04-30 13:21 | Outpatient (CLI) | payer OTHER | END 2025-04-30 13:22 | disposition home or self-care (01) | LOC: BICMAMMO 13:21 | PROVIDERS: ATTEND Family Medicine | DX: Z78.0 Asymptomatic menopausal state (principal); M85.88 Other specified disorders of bone density and structure, other site; M81.0 Age-related osteoporosis without current pathological fracture | CPT/HCPCS: 77080 ==